=== PATIENT | female | born 1965 ===

== ENCOUNTER → 2017-12-03 | Outpatient (CLI) | payer MEDICARE, OTHER ==
[~2017-12-03] MED LIST: HYDR-3237 PO
[2017-12-03 11:53] LABS: BASOPHILS # (AUTO) 0.02 x10^3/uL (0-0.1); BASOPHILS % (AUTO) 1 % (0-1); EOSINOPHILS # (AUTO) 0.08 x10^3/uL (0-0.4); EOSINOPHILS % (AUTO) 2 % (1-7); LYMPHOCYTES # (AUTO) 2.21 x10^3/uL (1-3.4); LYMPHOCYTES % (AUTO) 43 % (22-44); MD NO; MEAN CORPUSCULAR HEMOGLOBIN 30.9 pg (27.0-34.8); MEAN CORPUSCULAR HGB CONC 33.4 g/dL (32.4-35.8); MEAN CORPUSCULAR VOLUME 92.4 fL (80-100); MEAN PLATELET VOLUME 7.4 fL (7.4-10.4); MONOCYTES # (AUTO) 0.48 x10^3/uL (0.2-0.8); MONOCYTES % (AUTO) 9 % (2-9); NEUTROPHILS # (AUTO) 2.33 x10^3/uL (1.8-6.8); NEUTROPHILS % (AUTO) 45 % (42-75); PLATELET COUNT 343 x10^3/uL (130-400); RED CELL DISTRIBUTION WIDTH 13.3 % (9.6-15.2)
[2017-12-03 12:03] LABS: MICROSCOPIC NOT IND
[2017-12-03 12:10] LABS: CULTURE INDICATED? NO
== END | disposition home or self-care (01) ==
LOC: STAR 10:13
PROVIDERS: ATTEND Orthopaedic Surgery
DX: Z01.818 Encounter for other preprocedural examination (principal); M16.11 Unilateral primary osteoarthritis, right hip; M17.11 Unilateral primary osteoarthritis, right knee; Z79.899 Other long term (current) drug therapy; R79.89 Other specified abnormal findings of blood chemistry
CPT/HCPCS: 36415; 81003; 85025; 86703; 87081; 87899; G0435

== ENCOUNTER 2017-12-08 05:53 | Inpatient (IN) | payer MEDICARE, OTHER ==
[2017-12-03 10:49] VITALS: BP 108/73
[~2017-12-08] VITALS: Ht 162.6 cm; Wt 71.4 kg
[2017-12-08] MEDS ORDERED: VANCOMYCIN PMX 1GM/200ML 200 ML IV ONE (06:14)
[2017-12-08] MEDS ORDERED: MIDAZOLAM 1 MG/ML, 2ML ONE (06:41)
[2017-12-08] MEDS ORDERED: FENTANYL PF 250 MCG/5ML ONE (06:41)
[2017-12-08] MEDS ORDERED: PROPOFOL 10 MG/ML, 20ML ONE (06:43)
[2017-12-08] MEDS ORDERED: ROCURONIUM 10 MG/ML,10ML ONE (06:44)
[2017-12-08] MEDS ORDERED: ONDANSETRON 2MG/ML, 2ML ONE (06:45)
[2017-12-08] MEDS ORDERED: DEXAMETHASONE 4 MG/ML, 1ML ONE ×2 (06:45)
[2017-12-08] MEDS ORDERED: GLYCOPYRROLATE 0.4 MG/2 ML, 2ML ONE (06:46)
[2017-12-08] MEDS ORDERED: NEOSTIGMINE 1 MG/ML, 10ML ONE (06:46)
[2017-12-08] MEDS ORDERED: CEFAZOLIN 1,000 MG ONE ×2 (06:47)
[2017-12-08] MEDS ORDERED: SODIUM CHLORIDE 0.9% PF 10ML ONE (06:47)
[2017-12-08] MEDS ORDERED: PHENYLEPHRINE 10 MG/ML ONE (06:49)
[2017-12-08] MEDS ORDERED: KETOROLAC 60 MG/2 ML ONE (06:50)
[2017-12-08] MEDS ORDERED: ROPIvacaine/PF 0.2%, 20 ML ONE (06:50)
[2017-12-08] MEDS ORDERED: TRANEXAMIC ACID 100 MG/ML, 10ML ONE (06:51)
[2017-12-08] MEDS ORDERED: BACITRACIN 50,000 UNIT ONE (06:51)
[2017-12-08] MEDS ORDERED: morphine SULFATE/PF 1 MG/ML, 10ML ONE (06:51)
[2017-12-08] MEDS ORDERED: SODIUM CHLORIDE 0.9% 100 ML ONE (06:51)
[2017-12-08] MEDS ORDERED: EPINEPHRINE 1 MG/ML, 1ML ONE (06:51)
[2017-12-08] MEDS ORDERED: LACTATED RINGERS 1,000 ML IV SCH (06:56)
[2017-12-08] MEDS ORDERED: LIDOCAINE 1%, 2ML SQ PRN (07:00)
[2017-12-08] MEDS ORDERED: PROMETHAZINE 12.5 MG SUPP PR PRN (07:30)
[2017-12-08] MEDS ORDERED: ACETAMINOPHEN 325 MG TABLET PO PRN ×2 (07:30→09:30)
[2017-12-08] MEDS ORDERED: OXYcodone 5 MG/5 ML ORAL.SOL UDC PO PRN (07:30)
[2017-12-08] MEDS ORDERED: MEPERIDINE/PF 25MG/0.5ML IVPush PRN (07:30)
[2017-12-08] MEDS ORDERED: hydrALAzine 20 MG/ML, 1ML IV PRN (07:30)
[2017-12-08] MEDS ORDERED: ONDANSETRON 2MG/ML, 2ML IVPush PRN ×2 (07:30→09:30)
[2017-12-08] MEDS ORDERED: LABETALOL 5MG/ML, 20ML IV PRN (07:30)
[2017-12-08] MEDS ORDERED: FENTANYL PF 100 MCG/2ML ONE (09:27)
[2017-12-08] MEDS ORDERED: HYDROmorphone 2 MG/ML, 1ML ONE (09:27)
[2017-12-08] MEDS: FENTANYL PF 100 MCG/2ML IV PRN ×2 (09:30→09:40)
[2017-12-08] MEDS ORDERED: DIPHENHYDRAMINE 50 MG CAPSULE PO PRN (09:30)
[2017-12-08] MEDS ORDERED: ZOLPIDEM 5MG TABLET PO PRN (09:30)
[2017-12-08] MEDS: HYDROmorphone 1 MG/ML, 1ML IV PRN ×4 (09:35→10:15)
[2017-12-08] MEDS ORDERED: LORazepam 2 MG/ML, 1ML ONE (10:03)
[2017-12-08] MEDS: LORazepam 2 MG/ML, 1ML IVPush PRN ×2 (10:10→20:42)
[2017-12-08] MEDS ORDERED: TRANEXAMIC ACID 1,000 MG in SODIUM CHLORIDE 0.9% 100 ML IV ONE (13:00)
[2017-12-08] MEDS: D5%-0.45% NACL 1,000 ML IV SCH ×3 (13:43→23:41)
[2017-12-08 13:44] VITALS: BP 119/76
[2017-12-08] MEDS: OXYcodone/APAP 7.5/325MG TABLET PO PRN ×2 (13:54→18:24)
[2017-12-08] MEDS: CEFAZOLIN PMX 1GM/50ML 50 ML IVPB SCH (16:31)
[2017-12-08 20:04] VITALS: BP 112/72
[2017-12-08] MEDS: morphine SULFATE 10 MG/ML, 1ML IVPush PRN (20:42)
[2017-12-09] MEDS: CEFAZOLIN PMX 1GM/50ML 50 ML IVPB SCH ×2 (00:17→07:58)
[2017-12-09] MEDS: OXYcodone/APAP 7.5/325MG TABLET PO PRN ×6 (00:18→23:37)
[2017-12-09 00:21] VITALS: BP 90/60
[2017-12-09 03:12] VITALS: BP 111/68
[2017-12-09] MEDS: D5%-0.45% NACL 1,000 ML IV SCH ×4 (04:54→21:00)
[2017-12-09 06:26] VITALS: BP 107/67
[2017-12-09] MEDS ORDERED: VANCOMYCIN PMX 1GM/200ML 200 ML IVPB ONE (07:00)
[2017-12-09] MEDS: morphine SULFATE 10 MG/ML, 1ML IVPush PRN (11:15)
[2017-12-09 13:21] VITALS: BP 114/69
[2017-12-09] MEDS: ASPIRIN 325 MG TABLET EC PO SCH (17:00)
[2017-12-09] MEDS: LORazepam 2 MG/ML, 1ML IVPush PRN (18:24)
[2017-12-09 19:00] VITALS: BP 120/76
[2017-12-09] MEDS: DOCUSATE 100 MG CAPSULE PO SCH (19:34)
[2017-12-10 01:20] VITALS: BP 122/79
[2017-12-10] MEDS: D5%-0.45% NACL 1,000 ML IV SCH ×3 (01:24→12:00)
[2017-12-10] MEDS: OXYcodone/APAP 7.5/325MG TABLET PO PRN ×4 (03:24→15:47)
[2017-12-10] MEDS: morphine SULFATE 10 MG/ML, 1ML IVPush PRN (03:34)
[2017-12-10 07:16] VITALS: BP 110/72
[2017-12-10] MEDS: DOCUSATE 100 MG CAPSULE PO SCH (08:09)
[2017-12-10] MEDS: ASPIRIN 325 MG TABLET EC PO SCH (08:09)
[2017-12-10 14:18] VITALS: BP 102/60
== END 2017-12-10 17:23 | disposition home or self-care (01) | DRG 470 ==
LOC: OUT 05:53 → EDSTATUS 07:30 → ORIP 09:23 → 4NOR 11:29
PROVIDERS: ADMIT Orthopaedic Surgery; ATTEND Orthopaedic Surgery
PROC: 0SRC0J9 Replacement of Right Knee Joint with Synthetic Substitute, Cemented, Open Approach (ICD-10-PCS; principal; 2017-12-08 07:30)
DX: M17.11 Unilateral primary osteoarthritis, right knee (principal)
CPT/HCPCS: 36415; 85018; C1713; J0171; J0690; J1100; J1170; J1885; J2250; J2274; J2405; J2704; J2710; J2795; J3010; J3370; C1776; J2060; J2270; J2370; J7120